=== PATIENT | female | born 1985 | race Caucasian/White ===

== ENCOUNTER 2021-03-31 16:10 | Emergency (ER) | payer SELFPAY ==
[~2021-03-31] VITALS: Ht 149.9 cm; Wt 100.0 kg
[2021-03-31] MEDS ORDERED: LORAZEPAM 1MG TABLET PO ONE (18:00)
[2021-03-31 18:18] LABS: BASOPHILS % 0.5 % (0.0-2.0); EOSINOPHILS % 1.4 % (0.0-5.0); HEMATOCRIT. 37.6 % (36.0-48.0); LYMPHOCYTES % 26.8 % (20.0-50.0); MEAN CORPUSCULAR HEMOGLOBIN 31.2 pg (28.0-32.0); MEAN PLATELET VOLUME 9.1 fl (7.4-10.4); MONOCYTES % 5.2 % (2.0-8.0); NEUTROPHILS % 66.1 % (40.0-76.0); PLATELET 311 x1000/uL (130-400); RED BLOOD CELL COUNT 4.17 mill/uL (4.2-5.4); RED CELL DISTRIBUTION WIDTH 13.7 % (11.6-14.6)
[2021-03-31 18:29] LABS: CHLORIDE 109 mEq/L (98-107)
[2021-03-31 21:07] VITALS: BP 126/84
[2021-03-31] MEDS ORDERED: IOHEXOL-350 100 ML BOTTLE ONE (23:37)
== END 2021-03-31 21:14 | disposition home or self-care (01) ==
LOC: ER 16:10
DX: R42 Dizziness and giddiness (principal); R20.2 Paresthesia of skin; F41.9 Anxiety disorder, unspecified
CPT/HCPCS: 36415; 70496; 70498; 80053; 83880; 84484; 85025; 93005; 99285; Q9967